=== PATIENT | female | born 1940 | race Caucasian/White ===

== ENCOUNTER 2023-03-08 11:57 | Emergency (ER) | payer BC, SELFPAY ==
--- NOTE | 2023-03-08 12:05 | CRLHL7_ITS ---
For Patients: As a result of the Century Cures Act, medical imaging exams and procedure reports are released immediately into your electronic medical record. You may view this report before your referring provider. If you have questions, please contact your health care provider. Indication: slurred speech Technique: CT of the head without contrast. Coronal and sagittal reformats. Bone and soft tissue windows. Comparison: 08/06/2021 CT Findings: Stable encephalomalacia in the right frontal and parietal lobes involving the operculum. Chronic lacunar infarcts in the bilateral basal ganglia. Mild generalized parenchymal volume loss. Multiple patchy foci of T2 prolongation in the periventricular and subcortical white matter are nonspecific but typical for chronic small vessel white matter ischemic changes, unchanged. No acute intracranial hemorrhage or extraaxial collection. No evidence of acute cortical infarction. No mass effect or midline shift. The orbital contents are normal. No calvarial fractures. No lytic or sclerotic osseous lesions within the calvarium or skull base. Scalp and other imaged soft tissue structures are normal. The mastoid air cells are clear. Paranasal sinuses are well aerated. Thinning of the ocular lenses. Leftward deviation of the nasal septum. Left TMJ degenerative changes. Cerumen in the external ear canals bilaterally. Findings called to Dr. Gilliam at 12:44 pm. Impression: 1. No evidence of acute intracranial abnormality. 2. Stable encephalomalacia in the right frontal and parietal lobes involving the operculum. Chronic lacunar infarcts in the bilateral basal ganglia. 3. Stable mild generalized parenchymal volume loss. 4. Stable chronic small-vessel ischemic changes. Please note that all CT scans at this facility use dose modulation, iterative reconstruction, and/or weight-based dosing when appropriate to reduce radiation dose to as low as reasonably achievable. Dictated by Lawrence Burrows MD @ 03/08/2023 12:46:25 PM (Electronically Signed)
[2023-03-08 12:23] VITALS: BP 146/93; PULSE 82; RESP 16; O2SAT 96; BMI 29.1
[2023-03-08 12:28] VITALS: O2SAT 95
--- NOTE | 2023-03-08 12:28 | CRLHL7_ITS ---
For Patients: As a result of the Cures Act, medical imaging exams and procedure reports are released immediately into your electronic medical record. You may view this report before your referring provider. If you have questions, please contact your health care provider. INDICATION: Slurred speech. COMPARISON: Chest x-ray dated 06 August 2021. FINDINGS: A single portable chest x-ray shows a mildly enlarged cardiac silhouette which is unchanged. Atherosclerotic aorta. The lungs show minimal interstitial prominence. Sharp pleural margins. No pneumothorax. Impression : 1. Minimal interstitial prominence in the lungs. No pneumothorax. Dictated by Cristi Shaikh MD @ 03/08/2023 2:24:03 PM Dictated by: Cristi Shaikh MD @ 03/08/2023 14:24:17 (Electronically Signed)
--- NOTE | 2023-03-08 12:31 | ED.GENADULT ---
HPI - General Adult General Chief complaint: Altered Mental Status Stated complaint: Slurred speech Time Seen by Provider: 03/08/23 12:05 History of Present Illness HPI narrative: 82-year-old white female from [place] brought in by [facility] ambulance after some slurred speech noted today. 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 Patient has a pulsed POLST order dictating comfort focus treatment and DNR DNI status no IV or IM antibiotics only oral and ordered facial nutrition patient lives at the [facility] in [facility]. The patient has barely been good recent health. No cough noted no chest pain no other concerns. Review of Systems Status of ROS: Reports: unobtainable due to medical condition PFSH PFSH Social History How often do you have a drink containing alcohol: never How often do you have six or more drinks on one occasion: Never AUDIT-C Alcohol total score: 0 Non-prescribed substance use: denies use service: No Exam Narrative: Exam Narrative: Objective vital signs look largely unremarkable No obvious facial asymmetry Patient is able to talk in say that her ?throat is dry?. She is largely non cooperative likely given her mental state prior strokes and cognitive ability, and mental health concerns The patient is moving all extremities, does not appear to have a marked focal deficit does seem a little more weak on the left side of her arm and leg apparently this is chronic for her good peripheral perfusion noted no obvious skin lesions noted or rashes. Const: Vital Signs, click to edit/add: Vital Signs - 24 hr 03/08/23 12:23 03/08/23 12:28 Pulse Rate [Right Pulse Oximeter] 82 Respiratory Rate 16 Blood Pressure [Ri ght Upper Arm] 146/93 H Pulse Oximetry 96 95 Oxygen Delivery Me thod Room Air Course Vital Signs Vital signs: Initial Vital Signs Pulse Rate 82 03/08/23 12:23 Pulse Rhythm Regular 03/08/23 12:23 Pulse Strength 3+ Normal 03/08/23 12:23 Respiratory Rate 16 03/08/23 12:23 Blood Pressure 146/93 H 03/08/23 12:23 Blood Pressure Mean 110 H 03/08/23 12:23 Blood Pressure Position Supine 03/08/23 12:23 Pulse Oximetry 96 03/08/23 12:23 Oxygen Delivery Method Room Air 03/08/23 12:23 Vital Signs Pulse Rate 82 03/08/23 12:23 Respiratory Rate 16 03/08/23 12:23 Blood Pressure 146/93 H 03/08/23 12:23 Pulse Oximetry 96 03/08/23 12:23 Oxygen Delivery Method Room Air 03/08/23 12:23 Pulse Rate 82 03/08/23 12:23 Respiratory Rate 16 03/08/23 12:23 Blood Pressure 146/93 H 03/08/23 12:23 Pulse Oximetry 95 03/08/23 12:28 Oxygen Delivery Method Room Air 03/08/23 12:23 Medical Decision Making MDM Narrative Medical decision making narrative: The patient is an 82-year-old white female with history of mental health disorder, history of prior stroke, dementia, with slurred speech today, appears to have a DNR comfort care order. At this point since the patient has been brought to the ER by ambulance I think a CT CTA to see if there is any new stroke would be appropriate. I am not sure that changes are management significantly patient may need placement for more advanced care it appears she has more in assisted living facility will see how she him approved a response and will give her some IV hydration, check electrolytes, check a urinalysis chest x-ray, give 500 mL normal saline fluid bolus as mention. Disposition pending findings above. Addendum: Had a nice discussion with the patient's family including her who still want on her POLST document, comfort care basically. They do want to check a urine test we will do in and out cath specimen, check a chest x-ray and lab studies. She is able to speak well. Her daughter in-law also reports that she tends to be slurred in her speech when she has not talked for a while and then starts talking. She has had some dementia issues. She is in a full [facility] facility that can care for her pretty aggressively. They would like her to go home if possible. I think that is reasonable given her comfort care status. Addendum 2:[address] of the head shows no acute changes, chest x-ray shows chronic interstitial changes. The patient has urinalysis shows some bacteria but will wait a urine culture. There was not much white cells 3 red cells. Her other labs look pretty reassuring EKG shows sinus bradycardia. After discussion with family as mentioned above it was elected that we let her go home rest light activity observation. She really has comfort care listed on her pulsed examination form, and would follow this given family's wishes and they continue to reiterate those wishes. Return as needed. Update regular doctor as needed. Lab Data Labs: Lab Results 03/08/23 03/08/23 03/08/23 Range/Units 12:27 13:26 13:34 WBC 6.95 (4.50-11.00) K/uL RBC 4.21 (4.00-5.20) m/uL Hgb 14.0 (12.0-16.0) gm/dL Hct 43.0 (33.0-51.0) % MCV 102 H (80-100) fL MCH 33 (26-34) pg MCHC 33 (32-36) gm/dL RDW Coeff of Rubi 12.2 (11.5-15.5) % Plt Count 291 (140-440) K/uL Neut % (Auto) 71.8 (42.0-72.0) % Lymph % (Auto) 14.1 L (20-44) % Preble % (Auto) 10.6 (0.0-11.0) % Eos % (Auto) 3.0 (0.0-7.0) % Baso % (Auto) 0.4 (0.0-3.0) % Neut # (Auto) 4.98 (1.7-7.0) K/uL Lymph # (Auto) 1.00 (0.90-2.90) K/uL Preble # (Auto) 0.70 (0.00-0.90) K/UL Eos # (Auto) 0.21 (0.00-0.50) K/uL Baso # (Auto) 0.03 (0.00-0.30) K/uL INR 0.91 (0.91-1.10) Sodium 137 (135-149) mmol/L Potassium 4.7 (3.6-5.1) mmol/L Chloride 102 (96-114) mmol/L Carbon Dioxide 29 (20-32) mmol/L BUN 21 (7-30) mg/dL Creatinine 0.5 (0.5-1.5) mg/dL Estimated Creat Clear 40.60 Estimated GFR 94 ml/min Glucose 152 H (60-115) mg/dL Calcium 9.0 (8.4-10.6) mg/dL Total Bilirubin 0.2 (0.1-1.5) mg/dL Direct Bilirubin 0.2 (0.0-0.5) mg/dL AST 18 (12-35) U/L ALT 20 (4-35) U/L Alkaline Phosphatase 56 (40-150) U/L Troponin I < 0.01 L (0.01-0.04) ng/mL C-Reactive Protein 1.1 H (0.5-1.0) mg/dL NT-Pro-B Natriuret Pep 898 pg/mL Total Protein 7.3 (6.0-8.3) g/dL Albumin 4.3 (3.3-5.0) g/dL Amylase 60 (18-89) U/L Urine Color Yellow (Yellow) Urine Appearance Cloudy A (Clear) Urine pH 7.0 (5.0-8.5) Ur Specific Struthers 1.025 (1.000-1.030) Urine Protein 1+ A (Negative) Urine Glucose (UA) Trace A (Negative) Urine Ketones Negative (Negative) Urine Blood Negative (Negative) Urine Nitrite Negative (Negative) Urine Bilirubin Negative (Negative) Urine Urobilinogen 0.2 (0.2-1.0) Ur Leukocyte Esterase Trace A (Negative) Urine RBC 0-2 (0-2) Urine WBC 2-5 (0-5) Ur Squamous Epith Cells Few (None-Few) Urine Bacteria Many A (None) Urine Mucus Few A (None) SARS-CoV-2 (PCR) Negative SARS-CoV-2 (Negative) Influenza Type A (PCR) Negative PCR FLU A (Negative) Influenza Type B (PCR) Negative PCR FLU B (Negative) RSV (PCR) Negative PCR RSV (Negative) Discharge Plan Discharge Clinical Impression: Deficit in communication due to slurred speech Patient Disposition: Home w/ Parent or Adult Condition: Improved Additional Instructions: Observation, will call back if any abnormal growth on urine culture, diet as tolerated, activity limited, return as needed. Activity Level: Light activity Discharge Diet: Regular Follow Up/Referrals: Yuval Harris MD [Primary Care Provider] - Stand Alone Forms: [employer] Info Instructions
[2023-03-08 13:11] LABS: Basophils Absolute Auto 0.03 K/uL (0.00-0.30); Basophils Percent Auto 0.4 % (0.0-3.0); Eosinophils Absolute Auto 0.21 K/uL (0.00-0.50); Immature Granulocytes Abs Auto 0.01 K/uL (0.00-0.30); Immature Granulocytes Pct Auto 0.1 %; Lymphocytes Percent Auto 14.1 % (20-44); Mean Corpuscular HGB Conc 33 gm/dL (32-36); Mean Corpuscular Hemoglobin 33 pg (26-34); Mean Corpuscular Volume 102 fL (80-100); Monocytes Percent Auto 10.6 % (0.0-11.0); Neutrophils Absolute Auto 4.98 K/uL (1.7-7.0); Neutrophils Percent Auto 71.8 % (42.0-72.0); Platelet Count* 291 K/uL (140-440); RDW Coefficient of Variation % 12.2 % (11.5-15.5); Red Blood Count 4.21 m/uL (4.00-5.20); White Blood Count* 6.95 K/uL (4.50-11.00)
[2023-03-08 13:19] LABS: Slide Review Reflex No
[2023-03-08 13:32] LABS: Appearance Urine Cloudy (Clear); Bilirubin Urine Negative (Negative); Blood Urine Negative (Negative); Color Urine Yellow (Yellow); Glucose Urine Trace (Negative); Ketones Urine Negative (Negative); Leukocyte Esterase Urine Trace (Negative); Nitrite Urine Negative (Negative); Protein Urine 1+ (Negative); Specific Gravity Urine 1.025 (1.000-1.030); Urobilinogen Urine 0.2 (0.2-1.0)
[2023-03-08 13:41] LABS: Bacteria Urine Many; Mucus Urine Few; RBC Urine 0-2 (0-2); Squamous Epithelial Cell Urine Few (None-Few)
[2023-03-08 14:03] LABS: Albumin* 4.3 g/dL (3.3-5.0); Chloride* 102 mmol/L (96-114); Sodium* 137 mmol/L (135-149)
[2023-03-08 14:04] LABS: Potassium* 4.7 mmol/L (3.6-5.1)
[2023-03-08 14:05] LABS: INR 0.91 (0.91-1.10); Prothrombin Time 12.8 Seconds
[2023-03-08 14:06] LABS: Amylase* 60 U/L (18-89); Creatinine* 0.5 mg/dL (0.5-1.5); Estimated Glomerular Filt Rate 94 ml/min
[2023-03-08 14:07] LABS: Alanine Aminotransferase* 20 U/L (4-35); Alkaline Phosphatase* 56 U/L (40-150); Aspartate Amino Transferase* 18 U/L (12-35); Bilirubin Direct* 0.2 mg/dL (0.0-0.5); Bilirubin Total* 0.2 mg/dL (0.1-1.5); Blood Urea Nitrogen* 21 mg/dL (7-30); Carbon Dioxide* 29 mmol/L (20-32); Glucose* 152 mg/dL (60-115); Total Protein* 7.3 g/dL (6.0-8.3)
[2023-03-08 14:09] LABS: C Reactive Protein* 1.1 mg/dL (0.5-1.0)
[2023-03-08 14:23] LABS: NT Pro B Type NatriureticPept* 898 pg/mL; Troponin I* < 0.01 ng/mL (0.01-0.04)
[2023-03-08 14:56] LABS: PCR FLU A Negative PCR FLU A (Negative); PCR FLU B Negative PCR FLU B (Negative); PCR RSV Negative PCR RSV (Negative)
[2023-03-08 14:58] LABS: SARS PCR* Negative SARS-CoV-2 (Negative)
== END 2023-03-08 15:37 | disposition home or self-care (01) ==
PROVIDERS: Emergency Provider Family Medicine; PCP Internal Medicine
DX: R47.81 Slurred speech (principal); R41.841 Cognitive communication deficit
CPT/HCPCS: 36415; 70450; 71045; 80048; 80076; 81001; 82150; 83880; 84484; 85025; 85610; 86140; 87086; 87631; 93005; 94761; 99284; 99285

== ENCOUNTER 2023-03-08 15:28 | Outpatient (CLI) | payer BC, SELFPAY | END 2023-03-08 15:29 | disposition home or self-care (01) | LOC: AMB 03-11 12:18 | PROVIDERS: PCP Internal Medicine; Visit Provider Family Medicine | DX: Z99.3 Dependence on wheelchair (principal) | CPT/HCPCS: A0425; A0428 ==